=== PATIENT | female | born 1965 | race Hispanic/Latino ===

== ENCOUNTER 2023-06-28 08:12 | Outpatient (CLI) | payer BC, SELFPAY ==
--- NOTE | ~2023-06-28 | US_ITS ---
EXAMINATION: US right upper quadrant DATE: 06/28/2023 08:35 INDICATION: Abnormal liver function tests TECHNIQUE: Multiple grayscale and Doppler ultrasound images of the abdomen were obtained. COMPARISON: None available FINDINGS: The head and body of the pancreas are normal. The pancreatic tail is obscured by bowel gas. The liver demonstrates increased echogenicity, heterogenous echotexture, and decreased through trans mission. No surface nodularity. Normal hepatopetal flow in the main portal vein. The gallbladder is n ormal with no abnormal wall thickening, pericholecystic fluid or stones. The normal common bile duct measures 3 mm. There was no sonographic Acosta sign. IMPRESSION: 1. Diffuse hepatic steatosis. Reviewed, dictated and finalized at location F.
== END 2023-06-28 08:13 ==
PROVIDERS: PCP Family Medicine; Visit Provider Family Medicine
DX: K76.0 Fatty (change of) liver, not elsewhere classified (principal); R94.5 Abnormal results of liver function studies
CPT/HCPCS: 76705

== ENCOUNTER 2023-07-10 08:38 | Outpatient (CLI) | payer BC, SELFPAY ==
--- NOTE | ~2023-07-10 | DEXA_ITS ---
Bone Density Report Name: JAJA AKINS Age: 58 Sex: Female Ethnicity: Date of : 1965 Indication: postmenopausal; screening for osteoporosis; Referring Provider: SOYNA, SONA Schaefer Study: Bone densitometry was performed. Exam Date: July 10, 2023 Accession number: [id number] Bone Density: Region BMD T-score Z-score Classification AP Spine (L1-L4) 0.971 -0.7 0.5 Normal Femoral Neck (Left) 0.766 -0.7 0.2 Normal Total Hip (Left) 1.115 1.4 2.0 Normal Femoral Neck (Right) 0.832 -0.2 0.8 Normal Total Hip (Right) 1.096 1.3 1.8 Normal Total Hip Mean 1.106 1.4 1.9 Normal World Health Organization criteria for BMD impression classify patients as: Normal (T-score at or above -1.0), Osteopenia (T-score between -1.0 and -2.5), or Osteoporosis (T-score at or below -2.5). 10-year Fracture Risk: FRAX not reported because: All T-scores for Spine Total, Hip Total, Femoral Neck at or above -1.0 Clinical Information Provided by Patient: Has used the following medications: Vitamin D Patient maximum height was 64.0 Menopause Age: 52 Drinks caffeinated beverages Onset of menses at age 14 Number of children 2 Impression: The patient has normal bone mass. Discussion: BONE DENSITY IS ABOVE THE MINIMUM DESIRABLE LEVEL AT ALL SKELETAL SITES TESTED. This patient?s bone mineral density is above the minimum desirable level (T-score -1.0 or better) at all sites measured. The patient should follow a healthful lifestyle (good nutrition with adequate calcium and vitamin D, and appropriate weight-bearing exercise). Follow-Up: Consider repeating this study in 5 years or sooner if there is some new clinical indication. Reported by: LAKSHMI on 07/10/2023 9:15:00 AM. Reviewed, dictated and finalized at location AMarni BAUTISTA
== END 2023-07-10 08:39 ==
LOC: MICIMG 08:39
PROVIDERS: PCP Family Medicine; Visit Provider Family Medicine
DX: Z78.0 Asymptomatic menopausal state (principal)
CPT/HCPCS: 77080